=== PATIENT | female | born 2000 | race Caucasian/White ===

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

== ENCOUNTER 2020-06-24 14:17 | Emergency (ER) | payer MEDICAID ==
[~2020-06-24] VITALS: Ht 160 cm; Wt 55.0 kg
[2020-06-24] MEDS ORDERED: ONDANSETRON 4 MG/2 ML (SDV) Z0FRAN IVP STA ×2 (14:31→15:14)
[2020-06-24] MEDS ORDERED: NS IV 1000 ML 1,000 ML IV STA (14:31)
--- NOTE | 2020-06-24 14:34 | ED GI ---
General Chief Complaint: Abdominal/GI Problems Stated Complaint: VOMITING; DIARRHEA Source of Information: Patient History of Present Illness Date Seen by Provider: Jun 24, 2020 Time Seen by Provider: 14:19 Initial Comments 19-year-old female presenting with complaints of nausea vomiting and diarrhea since earlier this morning around 6 or 6:30 AM. She and her boyfriend had both eaten at [email or web address] last night and now are having GI Issues. He has abdominal cramping and she has n/v/d. She denies having any dizziness or lightheaded sensation. She has no significant abdominal cramping or pain. She denies any burning when she does urinate but states that she has not urinated much since this morning due to having multiple episodes of vomiting and watery diarrhea. She denies any fever or chills. Timing/Duration: 4-6 Hours Associated Symptoms: No Back Pain, No Chest Pain, No Diaphoresis, No Fever/Chills, No Fatigue, No Headache, No Heartburn; Nausea/Vomiting; No Rash, No Shortness of Air, No Swelling/Mass in Abdomen, No Syncope, No Weakness Allergies and Home Medications Allergies Coded Allergies: No Known Drug Allergies (Unverified , 06/24/20) Home Medications Ondansetron 4 Mg Tab.rapdis, 4 MG PO Q6H PRN for NAUSEA/VOMITING Prescribed by: BRIAN STAFFORD on 06/24/20 1536 Patient Home Medication List Home Medication List Reviewed: Yes Review of Systems Review of Systems Constitutional: No chills, No fever EENTM: No Symptoms Reported Respiratory: No Symptoms Reported Cardiovascular: No Symptoms Reported Gastrointestinal: See HPI Genitourinary: Other (Decreased urine output) Musculoskeletal: no symptoms reported Skin: no symptoms reported Psychiatric/Neurological: No Symptoms Reported Endocrine: No Symptoms Reported Past Liaryhe-Egbsfq-Gdlldp Hx Past Med/Social Hx: Reviewed Nursing Past Med/Soc Hx Past Medical History Surgeries: No Respiratory: No Cardiac: No Neurological: No Physical Exam Vital Signs Vital Signs - First Documented 06/24/20 14:26 Temp 37.0 Pulse 110 Resp 16 B/P (MAP) 122/77 (92) Pulse Ox 98 O2 Delivery Room Air Capillary Refill : Height/Weight/BMI Height: '" Weight: lbs. oz. 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 tested, alert, oriented x 3 Skin: normal color, warm/dry Images 1 - Abdomen is soft without guarding, tenderness, rebound Progress/Results/Core Measures Results/Orders Lab Results Laboratory Tests Test 06/24/20 14:26 06/24/20 14:31 Range/Units Urine Color YELLOW Urine Clarity CLEAR Urine pH 5.5 5-9 Urine Specific Renick >=1.030 1.016-1.022 Urine Protein NEGATIVE NEGATIVE Urine Glucose (UA) NEGATIVE NEGATIVE Urine Ketones 1+ H NEGATIVE Urine Nitrite NEGATIVE NEGATIVE Urine Bilirubin NEGATIVE NEGATIVE Urine Urobilinogen 0.2 < = 1.0 MG/DL Urine Leukocyte Esterase NEGATIVE NEGATIVE Urine RBC (Auto) 1+ H NEGATIVE Urine RBC 5-10 H /HPF Urine WBC 0-2 /HPF Urine Squamous Epithelial Cells 5-10 /HPF Urine Crystals NONE /LPF Urine Bacteria TRACE /HPF Urine Casts NONE /LPF Urine Mucus LARGE H /LPF Urine Culture Indicated NO White Blood Count 8.7 4.3-11.0 10^3/uL Red Blood Count 5.52 4.35-5.85 10^6/uL Hemoglobin 15.4 11.5-16.0 G/DL Hematocrit 45 35-52 % Mean Corpuscular Volume 82 80-99 FL Mean Corpuscular Hemoglobin 28 25-34 PG Mean Corpuscular Hemoglobin Concent 34 32-36 G/DL Red Cell Distribution Width 12.0 10.0-14.5 % Platelet Count 217 130-400 10^3/uL Mean Platelet Volume 10.4 7.4-10.4 FL Immature Granulocyte % (Auto) 0 % Neutrophils (%) (Auto) 81 H 42-75 % Lymphocytes (%) (Auto) 10 L 12-44 % Monocytes (%) (Auto) 9 0-12 % Eosinophils (%) (Auto) 0 0-10 % Basophils (%) (Auto) 0 0-10 % Neutrophils # (Auto) 7.1 1.8-7.8 X 10^3 Lymphocytes # (Auto) 0.8 L 1.0-4.0 X 10^3 Monocytes # (Auto) 0.8 0.0-1.0 X 10^3 Eosinophils # (Auto) 0.0 0.0-0.3 10^3/uL Basophils # (Auto) 0.0 0.0-0.1 10^3/uL Immature Granulocyte # (Auto) 0.0 0.0-0.1 10^3/uL Sodium Level 138 135-145 MMOL/L Potassium Level 3.5 L 3.6-5.0 MMOL/L Chloride Level 102 98-107 MMOL/L Carbon Dioxide Level 21 21-32 MMOL/L Anion Gap 15 H 5-14 MMOL/L Blood Urea Nitrogen 16 7-18 MG/DL Creatinine 0.80 0.60-1.30 MG/DL Estimat Glomerular Filtration Rate > 60 BUN/Creatinine Ratio 20 Glucose Level 100 70-105 MG/DL Calcium Level 9.9 8.5-10.1 MG/DL Corrected Calcium 8.5-10.1 MG/DL Total Bilirubin 0.7 0.1-1.0 MG/DL Aspartate Amino Transf (AST/SGOT) 20 5-34 U/L Alanine Aminotransferase (ALT/SGPT) 14 0-55 U/L Alkaline Phosphatase 100 40-136 U/L Total Protein 7.8 6.4-8.2 GM/DL Albumin 4.7 H 3.2-4.5 GM/DL Lipase 13 8-78 U/L Serum Test, Qualitative NEGATIVE NEGATIVE My Orders Orders - BRIAN STAFFORD MD Comprehensive Metabolic Panel (06/24/20 14:31) Lipase (06/24/20 14:31) Ua Culture If Indicated (06/24/20 14:31) Hcg,Qualitative Serum (06/24/20 14:31) Ed Iv/Invasive Line Start (06/24/20 14:31) Cbc With Automated Diff (06/24/20 14:31) Ns Iv 1000 Ml (Sodium Chloride 0.9%) (06/24/20 14:31) Ondansetron Injection (Zofran Injectio (06/24/20 14:31) Ondansetron Injection (Zofran Injectio (06/24/20 15:14) Pantoprazole Injection (Protonix Injecti (06/24/20 15:14) Vital Signs/I&O 06/24/20 14:26 Temp 37.0 Pulse 110 Resp 16 B/P (MAP) 122/77 (92) Pulse Ox 98 O2 Delivery Room Air Progress Progress Note #1: Progress Note Check basic labs and urinalysis. Give IV fluids for hydration and a dose of Zofran to help with nausea. Differential diagnosis would include food poisoning, gastroenteritis, colitis, diverticulitis, appendicitis, cholecystitis, UTI Progress Note #2: Time: 15:08 Progress Note CBC and chemistry are stable without acute significant abnormality. Her fluids have infused and she feels a little bit better. She was able to provide a urine sample. Will try repeating the nausea medicine and see if she can tolerate oral intake. Progress Note #3: Time: 15:28 Progress Note Updated pt that labs and UA look stable other than concentrated urine to go with dehydration from n/v/d. Will try po intake and see if she tolerates that after the repeat Zofran and Protonix. If she does ok will discharge on Zofran and see how she does at home Progress Note #4: Time: 15:48 Progress Note Tolerating oral intake so discharge on Zofran ODT and liquid diet. Counseled on follow up and return precautions Departure Impression Primary Impression: Nausea vomiting and diarrhea Additional Impression: Dehydration Disposition: 01 HOME, SELF-CARE Condition: Stable Departure-Patient Inst. Decision time for Depature: 15:48 Referrals: DELMI NOVAK MD (PCP/Family) Primary Care Physician Patient Instructions: CLEAR LIQUID DIET ADULT/CHILD, Diarrhea, Adult ED, Full Liquid Diet, Nausea and Vomiting, Adult ED Add. Discharge Instructions: Try the nausea medicine to help keep your stomach settled and follow a liquid diet for 24 to 36 hours and advance as you tolerate to bland, soft food. If having worsening symptoms or still unable to tolerate anything by mouth despite medicine and you start having fever over 101 F, abdominal pain, dizziness then seek medical care for recheck All discharge instructions reviewed with patient and/or family. Voiced understanding. Scripts Ondansetron (Ondansetron Odt) 4 Mg Tab.rapdis 4 MG PO Q6H PRN for NAUSEA/VOMITING for 2 Days, #8 TAB 0 Refills Prov: BRIAN STAFFORD MD 06/24/20 BRIAN STAFFORD MD Jun 24, 2020 14:34
[2020-06-24 14:40] LABS: HEMATOCRIT 45 % (35-52); HEMOGLOBIN 15.4 G/DL (11.5-16.0); LYMPHOCYTES % (AUTO) 10 % (12-44); MEAN CORPUSCULAR HEMOGLOBIN 28 PG (25-34); MEAN CORPUSCULAR HGB CONC 34 G/DL (32-36); MEAN CORPUSCULAR VOLUME 82 FL (80-99); MEAN PLATELET VOLUME 10.4 FL (7.4-10.4); MONOCYTES % (AUTO) 9 % (0-12); NEUTROPHILS % (AUTO) 81 % (42-75); PLATELET COUNT 217 10^3/uL (130-400); WHITE BLOOD COUNT 8.7 10^3/uL (4.3-11.0)
[2020-06-24 14:41] LABS: BASOPHILS % (AUTO) 0 % (0-10); EOSINOPHILS % (AUTO) 0 % (0-10); LYMPHOCYTES # (AUTO) 0.8 X 10^3 (1.0-4.0); MONOCYTES # (AUTO) 0.8 X 10^3 (0.0-1.0); NEUTROPHILS # (AUTO) 7.1 X 10^3 (1.8-7.8)
[2020-06-24 14:59] LABS: POTASSIUM 3.5 MMOL/L (3.6-5.0); SODIUM 138 MMOL/L (135-145)
[2020-06-24 15:00] LABS: ALANINE AMINOTRANSFERASE 14 U/L (0-55); ALBUMIN 4.7 GM/DL (3.2-4.5); ALKALINE PHOSPHATASE 100 U/L (40-136); BILIRUBIN,TOTAL 0.7 MG/DL (0.1-1.0); BUN/CREATININE RATIO 20; CALCIUM 9.9 MG/DL (8.5-10.1); CARBON DIOXIDE 21 MMOL/L (21-32); CHLORIDE 102 MMOL/L (98-107); GFR ESTIMATED > 60; GLUCOSE 100 MG/DL (70-105); LIPASE 13 U/L (8-78); TOTAL PROTEIN 7.8 GM/DL (6.4-8.2)
[2020-06-24] MEDS ORDERED: PANTOPRAZOLE 40 MG (PROTONIX) VIAL IV STA (15:14)
[2020-06-24 15:17] LABS: BILIRUBIN,URINE NEGATIVE (NEGATIVE); CLARITY,URINE CLEAR; COLOR,URINE YELLOW; GLUCOSE, URINE (UA) NEGATIVE (NEGATIVE); KETONES,URINE 1+ (NEGATIVE); LEUKOCYTE ESTERASE ,URINE NEGATIVE (NEGATIVE); NITRITE,URINE NEGATIVE (NEGATIVE); PH,URINE 5.5 (5-9); PROTEIN,URINE NEGATIVE (NEGATIVE)
[2020-06-24 15:18] LABS: BACTERIA,URINE TRACE /HPF; WBC,URINE 0-2 /HPF
[2020-06-24] MEDS ORDERED: ONDA4TAB11 PO (15:36)
[2020-06-24 15:50] VITALS: BP 122/60
== END 2020-06-24 15:52 | disposition home or self-care (01) ==
LOC: EDUNIT# 14:17 → ER FS 14:19
DX: R11.2 Nausea with vomiting, unspecified (principal); R19.7 Diarrhea, unspecified; E86.0 Dehydration
CPT/HCPCS: 36415; 80053; 81000; 83690; 84703; 85025

== ENCOUNTER 2020-09-07 21:28 | Emergency (ER) | payer MEDICAID ==
[~2020-09-07] VITALS: Ht 162.5 cm; Wt 55.8 kg
[~2020-09-07 21:28] MED LIST: ONDA4TAB11 PO
[2020-09-07] MEDS ORDERED: NAPR-1071 PO (22:09)
--- NOTE | 2020-09-07 22:09 | ED Back Pain ---
General Chief Complaint: Back Problems Stated Complaint: LOWER BACK PAIN Nursing Triage Note: Pt awake, alert, oriented, ambulated from waiting room to ED room 4 without difficulty. Pt reports lower back pain over the past three days. Denies any recent injury. Denies previous injury. No numbness or tingling to BLE, no loss of balance, no loss of bowel or bladder control, no fever. Pt reports taking ibuprofen et another pain pill in a white bottle at home, but it isn't helping. States that the pain is bad enough to wake her from sleep. Airway intact, respirations even et unlabored, skin warm, dry, appropriate for ethnicity. No sx of acute distress. History of Present Illness Date Seen by Provider: Sep 07, 2020 Time Seen by Provider: 21:50 Initial Comments 89-year-old female presents with right lower back pain along the hip line. She reports is been going on for 3 to 4 days. She denies any injury. She denies any previous injury or increase in activity. She denies any urinary symptoms or flank pain. Pain gets worse with any type of movement. She denies numbness tingling or any bowel or bladder issues. She denies any fever cough nausea vomiting diarrhea. She reports she is tried some ibuprofen and Tylenol at home with minimal relief. Allergies and Home Medications Allergies Coded Allergies: No Known Drug Allergies (Unverified , 06/24/20) Home Medications Naproxen 500 Mg Tablet, 500 MG PO BID Prescribed by: STAR KIM on 09/07/20 2209 Ondansetron 4 Mg Tab.rapdis, 4 MG PO Q6H PRN for NAUSEA/VOMITING Prescribed by: BRIAN STAFFORD on 06/24/20 1536 Patient Home Medication List Home Medication List Reviewed: Yes Review of Systems Constitutional: no symptoms reported EENTM: no symptoms reported Respiratory: no symptoms reported Cardiovascular: no symptoms reported Gastrointestinal: no symptoms reported Musculoskeletal: see HPI, back pain Skin: no symptoms reported Psychiatric/Neurological: No Symptoms Reported Past Hzecqct-Cyfrxw-Vebadl Hx Patient Social History Tobacco Use?: No Smoking Status: Never a Smoker Use of E-Cig and/or Vaping dev: No Substance use?: No Alcohol Use?: No Pt feels they are or have been: No Immunizations Up To Date Influenza Vaccine Up-to-Date: No; Not Current Seasonal Allergies Seasonal Allergies: No Past Medical History Surgeries: No Respiratory: No Cardiac: No Neurological: No Genitourinary: No Gastrointestinal: No Musculoskeletal: No Endocrine: No HEENT: No Cancer: No Psychosocial: No Integumentary: No Blood Disorders: No Physical Exam Vital Signs Vital Signs - First Documented 09/07/20 21:40 Temp 37.3 Pulse 123 Resp 18 B/P (MAP) 109/76 (87) Pulse Ox 99 O2 Delivery Room Air Capillary Refill : Less Than 3 Seconds Height, Weight, BMI Height: '" Weight: lbs. oz. 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 Norm as Tested Skin: Normal Color, Warm/Dry Progress/Results/Core Measures Results/Orders My Orders Orders - JORGE LUIS KIMR Clark DO Urine Bedside (09/07/20 22:06) Ketorolac Injection (Toradol Injection) (09/07/20 22:10) Norflex 60 Mg Im (09/07/20 22:10) Vital Signs/I&O 09/07/20 21:40 Temp 37.3 Pulse 123 Resp 18 B/P (MAP) 109/76 (87) Pulse Ox 99 O2 Delivery Room Air Blood Pressure Mean: 87 Departure Impression Primary Impression: Back strain Qualified Codes: S39.012A - Strain of muscle, fascia and tendon of lower back, initial encounter Disposition: HOME, SELF-CARE Condition: Stable Departure-Patient Inst. Referrals: DELMI NOVAK MD (PCP/Family) Primary Care Physician Add. Discharge Instructions: 4% topical lidocaine with menthol to affected area as directed on package All discharge instructions reviewed with patient and/or family. Voiced understanding. Scripts Naproxen (Naprosyn) 500 Mg Tablet 500 MG PO BID, #30 TAB 0 Refills Prov: JORGE LUIS KIMR Clark DO 09/07/20 MONI KIMVOR L DO Sep 07, 2020 22:09
[2020-09-07] MEDS ORDERED: ORPHENADRINE 60 MG/2 ML (NORFLEX) AMP (ED ONLY) IM STA (22:10)
[2020-09-07] MEDS ORDERED: KETOROLAC 30 MG/ML VIAL IM STA (22:10)
[2020-09-07 22:40] VITALS: BP 102/68
== END 2020-09-07 22:45 | disposition home or self-care (01) ==
LOC: EDUNIT# 21:28 → ER FS 21:31
DX: S39.012A Strain of muscle, fascia and tendon of lower back, initial encounter (principal); X58.XXXA Exposure to other specified factors, initial encounter
CPT/HCPCS: 84703; 99284

== ENCOUNTER 2020-12-01 02:05 | Emergency (ER) | payer MEDICAID ==
[~2020-12-01] VITALS: Ht 160 cm; Wt 53.3 kg
[~2020-12-01 02:05] MED LIST changes: +NAPR-1071 PO
[2020-12-01] MEDS ORDERED: ONDANSETRON 4 MG (ZOFRAN) ORAL DISSOLVE TAB PO STA (02:22)
--- NOTE | 2020-12-01 02:28 | ED GI ---
General Chief Complaint: Abdominal/GI Problems Stated Complaint: NAUSEA/VOMITING Nursing Triage Note: Pt awake, alert, oriented. Ambulated from waiting room to ER2 without difficulty. Pt reports nausea et vomiting since 1900 last night. Pt believes she may have food poisoning, went out to eat at 1700. Pt does not know if the person that ate there with her is also sick. Denies fever. Denies sick contacts. Denies blood or coffee grounds appearance to emesis. Airway intact. Respirations even et unlabored. Skin warm, dry, appropriate for ethnicity. No sx of acute distress. Source of Information: Patient Exam Limitations: No Limitations History of Present Illness Date Seen by Provider: Dec 01, 2020 Time Seen by Provider: 14:14 Initial Comments 19-year-old female otherwise healthy with no medical issues coming in due to nausea, and nonbloody nonbilious vomiting that started around 7 PM today as well as some loose stools. She attributes this to the restaurant she ate at several hours prior to the event in which she had a cheeseburger and fried pickles. Her boyfriend also ate this, but she has not talked with him to see if he is also sick. Denies any fever, cough, abdominal pain, dysuria, vaginal discharge, body aches, or any other concerns. She is on the [place] shot for control and has not missed any doses. Allergies and Home Medications Allergies Coded Allergies: No Known Drug Allergies (Unverified , 06/24/20) Patient Home Medication List Home Medication List Reviewed: Yes Naproxen (Naprosyn) 500 Mg Tablet, 500 MG PO BID Prescribed by: STAR KIM on 09/07/202208 Ondansetron (Ondansetron Odt) 4 Mg Tab.rapdis, 4 MG PO Q6H PRN for NAUSEA/VOMITING Prescribed by: BRIAN STAFFORD on 06/24/20 1536 Ondansetron (Ondansetron Odt) 4 Mg Tab.rapdis, 4 MG PO Q6H PRN for NAUSEA/VOMITING Prescribed by: JONES VEGA on 12/01/20 0230 Review of Systems Review of Systems Constitutional: No chills, No fever, No malaise, No weakness EENTM: No Blurred Vision Respiratory: Denies Cough, Denies Shortness of Air Cardiovascular: Denies Chest Pain Gastrointestinal: Denies Abdominal Pain; Diarrhea, Nausea, Vomiting Genitourinary: Denies Frequency, Denies Flank Pain Musculoskeletal: No back pain Skin: no symptoms reported Psychiatric/Neurological: No Symptoms Reported Endocrine: No Symptoms Reported Hematologic/Lymphatic: No Symptoms Reported All Other Systems Reviewed Negative Unless Noted: Yes Past Lxpdkxn-Jkhrbg-Aykcic Hx Patient Social History Tobacco Use?: No Use of E-Cig and/or Vaping dev: No Substance use?: No Alcohol Use?: No Immunizations Up To Date First/Initial COVID19 Vaccinat: 2020, unknown month Second COVID19 Vaccination Jerod: 2020, unknown month COVID19 Vaccine Medical Donation Professional: [employer] Seasonal Allergies Seasonal Allergies: No Past Medical History Surgeries: No Respiratory: No Cardiac: No Neurological: No Genitourinary: No Gastrointestinal: No Musculoskeletal: No Endocrine: No HEENT: No Cancer: No Psychosocial: No Integumentary: No Blood Disorders: No Physical Exam Vital Signs Vital Signs - First Documented 12/01/20 02:10 Temp 36.1 Pulse 99 Resp 18 B/P (MAP) 121/79 (93) Pulse Ox 97 O2 Delivery Room Air Capillary Refill : Less Than 3 Seconds Height/Weight/BMI Height: '" Weight: lbs. oz. kg; 20.00 BMI Method: General Appearance: WD/WN, no apparent distress HEENT: PERRL/EOMI, pharynx normal Neck: non-tender, full range of motion, supple, normal inspection Respiratory: chest non-tender, lungs clear, normal breath sounds, no respiratory distress, no accessory muscle use Cardiovascular: regular rate, rhythm, no edema, no murmur Gastrointestinal: normal bowel sounds, non tender, soft; No distended, No guar ding, No rebound Extremities: normal range of motion, non-tender, normal inspection, no pedal edema, no calf tenderness, normal capillary refill Back: normal inspection, no CVA tenderness, no vertebral tenderness Neurologic/Psychiatric: no motor/sensory deficits, alert, normal mood/affect Skin: normal color, warm/dry Lymphatic: no adenopathy Progress/Results/Core Measures Results/Orders My Orders Orders - JONES VEGA MD Ondansetron Oral Dissolve Tab (Zofran (12/01/20 02:22) Vital Signs/I&O 12/01/20 02:10 Temp 36.1 Pulse 99 Resp 18 B/P (MAP) 121/79 (93) Pulse Ox 97 O2 Delivery Room Air Blood Pressure Mean: 93 Progress Progress Note : Progress Note Well-appearing 19-year-old female with above history coming in due to several hours of nausea and nonbloody nonbilious vomiting. ABCs were intact and vitals were stable on presentation. Physical exam reassuring, specifically a soft and nontender abdomen. She is not tachycardic, and appears well-hydrated on exam. This is potentially viral versus foodborne related. Given her reassuring abdominal exam and no pain anywhere I have a low suspicion for anything more insidious. No infectious symptoms that would point to anything such as a bladder or kidney infection. I believe she is stable for discharge with outpatient follow-up and she can push oral fluids. She was sent home with strict return precautions. Departure Impression Primary Impression: Nausea and vomiting Qualified Codes: R11.2 - Nausea with vomiting, unspecified Disposition: HOME, SELF-CARE Condition: Stable Departure-Patient Inst. Decision time for Depature: 02:28 Referrals: DELMI NOVAK MD (PCP/Family) Primary Care Physician Patient Instructions: Food Poisoning (DC) Add. Discharge Instructions: It is possible you ate something bad that is causing you to vomit. Take Zofran as needed for the nausea. Continue to sip fluids all day tomorrow. You can us administrative law judge how well hydrated you are by if you are still urinating. Typically this lasts 24 to 48 hours if it is food related. If you begin having fever, cough, chills, body aches, or any other concerns like that, then you may need to be Covid tested. If you are done vomiting by tomorrow, it is okay for you to go to school or work on Wednesday. All discharge instructions reviewed with patient and/or family. Voiced understanding. Scripts Ondansetron (Ondansetron Odt) 4 Mg Tab.rapdis 4 MG PO Q6H PRN for NAUSEA/VOMITING for 5 Days, #20 TAB 0 Refills Prov: JONES VEGA MD 12/01/20 JONES VEGA MD Dec 01, 2020 02:28
[2020-12-01] MEDS ORDERED: ONDA4TAB11 PO (02:30)
[2020-12-01 02:35] VITALS: BP 121/79
== END 2020-12-01 02:35 | disposition home or self-care (01) ==
LOC: EDUNIT# 02:05 → ER FS 02:07
DX: R11.2 Nausea with vomiting, unspecified (principal)
CPT/HCPCS: 99283

== ENCOUNTER 2021-10-20 20:58 | Emergency (ER) | payer MEDICAID ==
[~2021-10-20] VITALS: Ht 160 cm; Wt 58.4 kg
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
[2021-10-20] MEDS ORDERED: PROC-1 PO (21:23)
[2021-10-20] MEDS ORDERED: ONDA4TAB11 PO (21:23)
[2021-10-20] MEDS ORDERED: KETOROLAC 30 MG/ML VIAL IM ONE (21:30)
[2021-10-20] MEDS ORDERED: PROCHLORPERAZINE 10 MG/2ML INJ (COMPAZINE) IM ONE (21:30)
[2021-10-20] MEDS ORDERED: diphenhydrAMINE 50 MG/ML INJ (BENADRYL) IM ONE (21:30)
[2021-10-20 21:36] VITALS: BP 136/84
== END 2021-10-20 21:36 | disposition home or self-care (01) ==
LOC: EDUNIT# 20:58 → ER FS 21:00
DX: S06.0X0A Concussion without loss of consciousness, initial encounter (principal); W19.XXXA Unspecified fall, initial encounter; W22.8XXA Striking against or struck by other objects, initial encounter; Y92.828 Other wilderness area as the place of occurrence of the external cause
CPT/HCPCS: 99284

== ENCOUNTER 2022-01-31 21:02 | Emergency (ER) | payer MEDICAID ==
[~2022-01-31] VITALS: Ht 160 cm; Wt 58.2 kg
[~2022-01-31 21:02] MED LIST changes: +PROC-1 PO
[2022-01-31] MEDS ORDERED: NS IV 1000 ML 1,000 ML IV SCH (21:45)
[2022-01-31] MEDS ORDERED: KETOROLAC 15 MG/ML VIAL IVP ONE (21:45)
--- NOTE | 2022-01-31 22:06 | ED General ---
General Chief Complaint: Cough/Cold/Flu Symptoms Stated Complaint: INFLUENZA A + & STEP + 12/3 - BACK PAIN Nursing Triage Note: PT STATES SHE TESTED POSITIVE FOR FLU A THIS AM AT [facility], WAS NEGATIVE FOR COVID, NOW HAS BACK PAIN/ACHE. HAS BEEN TAKING TYLENOL AND IBUPROFEN FOR FEVER AT HOME. IS ALSO UNABLE TO KEEP ANYTHING DOWN. Source of Information: Patient Exam Limitations: No Limitations (ROBERTH JACK APRN) History of Present Illness Date Seen by Provider: Jan 31, 2022 Time Seen by Provider: 21:15 Initial Comments Patient is a previously healthy 21-year-old female who presents to the emergency department with back pain began earlier today. Patient was seen at a walk-in clinic where she tested positive for influenza A. She was negative for COVID. She states she has been taking Tylenol and ibuprofen for her fever at home. She states she has also had a mild cough and nasal congestion. Denies any urinary symptoms. (ROBERTH JACK APRN) Allergies and Home Medications Allergies Coded Allergies: No Known Drug Allergies (Unverified , 06/24/20) Patient Home Medication List Home Medication List Reviewed: Yes (ROBERTH JACK APRN) Naproxen (Naprosyn) 500 Mg Tablet, 500 MG PO BID Prescribed by: STAR KIM on 09/07/202208 Ondansetron (Ondansetron Odt) 4 Mg Tab.rapdis, 4 MG PO Q6H PRN for NAUSEA/VOMITING Prescribed by: BRIAN STAFFORD on 06/24/20 1536 Ondansetron (Ondansetron Odt) 4 Mg Tab.rapdis, 4 MG PO Q6H PRN for NAUSEA/VOMITING Prescribed by: OJNES VEGA on 12/01/20 0230 Ondansetron (Ondansetron Odt) 4 Mg Tab.rapdis, 4 MG PO Q6H PRN for NAUSEA/VOMITING-1ST LINE Prescribed by: JONES VEGA on 10/20/212122 Prochlorperazine Maleate (Compazine) 10 Mg Tablet, 10 MG PO Q8H PRN for NAUSEA/VOMITING-2ND LINE Prescribed by: JONES VEGA on 10/20/212122 Review of Systems Review of Systems Constitutional: see HPI, fever, malaise EENTM: no symptoms reported Respiratory: no symptoms reported Cardiovascular: no symptoms reported Gastrointestinal: no symptoms reported Genitourinary: no symptoms reported Musculoskeletal: see HPI, back pain Skin: no symptoms reported Psychiatric/Neurological: No Symptoms Reported Hematologic/Lymphatic: No Symptoms Reported Immunological/Allergic: no symptoms reported (ROBERTH JACK APRN) Past Iwectzv-Jlsdvo-Qxuuyu Hx Patient Social History Tobacco Use?: No Substance use?: No Alcohol Use?: No (ROBERTH JACK APRN) Immunizations Up To Date Influenza Vaccine Up-to-Date: No; Not Current First/Initial COVID19 Vaccinat: Pfizer Second COVID19 Vaccination Jerod: Kannact Third COVID19 Vaccination Date: Kannact (ROBERTH JACK APRN) Seasonal Allergies Seasonal Allergies: No (ROBERTH JACK APRN) Past Medical History Surgeries: No Respiratory: No Cardiac: No Neurological: No Genitourinary: No Gastrointestinal: No Musculoskeletal: No Endocrine: No HEENT: No Cancer: No Psychosocial: No Integumentary: No Blood Disorders: No (ROBERTH JACK APRN) Physical Exam Vital Signs Vital Signs - First Documented 01/31/22 21:11 Temp 36.9 Pulse 98 Resp 16 B/P (MAP) 99/66 (77) Pulse Ox 97 (LETA PALMER MD) Vital Signs Capillary Refill : (ROBERTH JACK APRN) Height, Weight, BMI Height: '" Weight: lbs. oz. kg; 22.00 BMI Method: General Appearance: No Apparent Distress, WD/WN HEENT: PERRL/EOMI, TMs Normal, Normal ENT Inspection, Pharynx Normal Neck: Non Tender, Supple Respiratory: Chest Non Tender, Lungs Clear, Normal Breath Sounds, No Accessory Muscle Use, No Respiratory Distress Cardiovascular: Regular Rate, Rhythm Gastrointestinal: Non Tender, Soft Neurologic/Psychiatric: Alert, Oriented x3, No Motor/Sensory Deficits, Normal Mood/Affect Skin: Normal Color, Warm/Dry (ROBERTH JACK APRN) Progress/Results/Core Measures Suspected Sepsis SIRS Temperature: Pulse: 98 Respiratory Rate: 16 Blood Pressure 99 /66 Mean: 77 (ROBERTH JACK APRN) Results/Orders Vital Signs/I&O 01/31/22 01/31/22 21:11 22:19 Temp 36.9 Pulse 98 Resp 16 B/P (MAP) 99/66 (77) 98/63 Pulse Ox 97 (LETA PALMER MD) Vital Signs/I&O Capillary Refill : (ROBERTH JACK APRN) Blood Pressure Mean: 77 Progress Note : Progress Note Patient is nontoxic and well-hydrated on exam. No adventitious lung sounds work his work of breathing noted. Patient is having myalgias as expected with influenza. Her vital signs are reassuring. There is no indication for any diagnostic testing at this time as the etiology of her symptoms has already been established. Patient was given a liter of normal saline as well as a dose of ketorolac. She will be discharged home with recommendations for supportive care and close follow-up with PCP. Return precautions for urgent symptomology discussed. Patient verbalized understanding. (ROBERTH JACK APRN) Departure Impression Primary Impression: Influenza Disposition: 01 HOME, SELF-CARE Condition: Stable Departure-Patient Inst. Decision time for Depature: 22:00 (ROBERTH JACK APRN) Referrals: NO,LOCAL PHYSICIAN (PCP) Primary Care Physician LEE CHAMBERS APRN (Family) Primary Care Physician Patient Instructions: Flu, Adult (DC) ATTENDING PHYSICIAN NOTE: I was physically present as attending physician in the emergency department during the care of this patient, but I was not directly involved in the decision making or delivery of care for this patient. (LETA PALMER MD) ROBERTH JACK APRN Jan 31, 2022 22:05 LETA PALMER MD Feb 02, 2022 05:38
[2022-01-31 22:19] VITALS: BP 98/63
== END 2022-01-31 22:19 | disposition home or self-care (01) ==
LOC: EDUNIT# 21:02 → ER 21:03
DX: J10.1 Influenza due to other identified influenza virus with other respiratory manifestations (principal)
CPT/HCPCS: 99281

== ENCOUNTER 2022-05-02 18:28 | Emergency (ER) | payer MEDICAID ==
[~2022-05-02] VITALS: Ht 162.6 cm; Wt 52.6 kg
[2022-05-02] MEDS ORDERED: NS IV 1000 ML 1,000 ML IV STA (18:58)
--- NOTE | 2022-05-02 19:09 | ED General ---
General Chief Complaint: General Problems/Pain Stated Complaint: NUMBNESS, LOW BP, WEAKNESS,DIZZY Source of Information: Patient Exam Limitations: No Limitations (JONES GHOSH) History of Present Illness Date Seen by Provider: May 02, 2022 Time Seen by Provider: 19:04 Initial Comments Patient is a 21-year-old female with a history anxiety and depression who presents ED for multiple complaints. She has a history of seizures as a kid. She was on medications prior but they took her off. She states over the past 2 weeks she has been having numbness and tingling in her hands and feet. This is been intermittent but worse today. She woke up today feeling dizzy, lightheaded with worsening hand numbness and tingling her hands and feet. She states she has been having episodes where she has difficulty speaking. She went to her therapist for her anxiety yesterday and they noted her blood pressure being low and was recommended come to ED for further evaluation. She is currently on trazodone for sleep, zoloft. Patient denies any urinary symptoms. She is concerned for she may be anemic. Denies any drug use or alcohol use. Denies of any known cardiac history. No recent travels or surgeries. Denies fever, neck pain, visual changes. Associate headache today (JONES GHOSH) Allergies and Home Medications Allergies Coded Allergies: No Known Drug Allergies (Unverified , 06/24/20) Patient Home Medication List Home Medication List Reviewed: Yes (JONES GHOSH) Cephalexin (Cephalexin) 500 Mg Tablet, 500 MG PO BID Prescribed by: ELIZABETH GREER on 05/02/222019 Naproxen (Naprosyn) 500 Mg Tablet, 500 MG PO BID Prescribed by: STAR KIM on 09/07/202208 Ondansetron (Ondansetron Odt) 4 Mg Tab.rapdis, 4 MG PO Q6H PRN for NAUSEA/VOMITING Prescribed by: BRIAN STAFFORD on 06/24/20 1536 Ondansetron (Ondansetron Odt) 4 Mg Tab.rapdis, 4 MG PO Q6H PRN for NAUSEA/VOMITING Prescribed by: JONES VEGA on 12/01/20 0230 Ondansetron (Ondansetron Odt) 4 Mg Tab.rapdis, 4 MG PO Q6H PRN for NAUSEA/VOMITING-1ST LINE Prescribed by: JONES EVGA on 10/20/212122 Prochlorperazine Maleate (Compazine) 10 Mg Tablet, 10 MG PO Q8H PRN for NAUSEA/VOMITING-2ND LINE Prescribed by: JONES VEGA on 10/20/212122 Review of Systems Review of Systems Constitutional: No chills, No diaphoresis, No malaise, No weakness EENTM: No hearing loss, No ear pain, No blurred vision Respiratory: No cough, No dyspnea on exertion, No short of breath, No wheezing Cardiovascular: No chest pain Gastrointestinal: No abdominal pain, No diarrhea, No nausea, No vomiting Genitourinary: No decreased output, No discharge Musculoskeletal: No back pain, No joint pain Psychiatric/Neurological: Anxiety, Depressed, Headache, Numbness, Paresthesia Hematologic/Lymphatic: Denies Anemia Immunological/Allergic: denies food allergy (JONES GHOSH) All Other Systems Reviewed Negative Unless Noted: Yes (JONES GHOSH) Past Cewfzhk-Eicxcc-Qzrvzk Hx Patient Social History Tobacco Use?: No Use of E-Cig and/or Vaping dev: No Substance use?: No Alcohol Use?: No Pt feels they are or have been: No (JONES GHOSH) Immunizations Up To Date Influenza Vaccine Up-to-Date: Yes; Up-to-Date First/Initial COVID19 Vaccinat: Pfizer Second COVID19 Vaccination Jerod: Pfizer Third COVID19 Vaccination Date: [facility] (JONES GHOSH) Seasonal Allergies Seasonal Allergies: No (JONES GHOSH) Past Medical History Surgery/Hospitalization HX: ANXIETY Surgeries: No Respiratory: No Cardiac: No Neurological: No Genitourinary: No Gastrointestinal: No Musculoskeletal: No Endocrine: No HEENT: No Cancer: No Psychosocial: No Integumentary: No Blood Disorders: No (JONES GHOSH) Physical Exam Vital Signs Vital Signs - First Documented 05/02/22 18:40 Temp 36.3 Pulse 74 Resp 16 B/P (MAP) 116/95 (102) Pulse Ox 98 O2 Delivery Room Air (CATALINA,TRE K DO) Vital Signs Capillary Refill : (JONES GHOSH) Height, Weight, BMI Height: '" Weight: lbs. oz. kg; 22.00 BMI Method: General Appearance: No Apparent Distress, WD/WN Eyes: Bilateral Eye Normal Inspection, Bilateral Eye PERRL, Bilateral Eye EOMI HEENT: PERRL/EOMI, TMs Normal, Normal ENT Inspection, Pharynx Normal Neck: Full Range of Motion, Normal Inspection, Supple Respiratory: Chest Non Tender, Lungs Clear, Normal Breath Sounds, No Accessory Muscle Use Cardiovascular: Regular Rate, Rhythm, No Edema, No Gallop, No JVD, No Murmur Gastrointestinal: Normal Bowel Sounds, No Organomegaly, No Pulsatile Mass Extremity: Normal Capillary Refill, Normal Inspection, Normal Range of Motion, Non Tender Neurologic/Psychiatric: Alert, Oriented x3, No Motor/Sensory Deficits, Normal Mood/Affect Skin: Normal Color, Warm/Dry (JONES GHOSH) Progress/Results/Core Measures Suspected Sepsis SIRS Temperature: Pulse: Respiratory Rate: Laboratory Tests 05/02/22 19:24: White Blood Count 9.7 Blood Pressure / Mean: Laboratory Tests 05/02/22 19:24: Creatinine 0.87, Platelet Count 268, Total Bilirubin 0.8 (JONES GHOSH) Results/Orders Lab Results Laboratory Tests Test 05/02/22 19:24 05/02/22 19:34 Range/Units White Blood Count 9.7 4.3-11.0 10^3/uL Red Blood Count 5.47 H 3.80-5.11 10^6/uL Hemoglobin 15.0 11.5-16.0 g/dL Hematocrit 44 35-52 % Mean Corpuscular Volume 80 80-99 fL Mean Corpuscular Hemoglobin 27 25-34 pg Mean Corpuscular Hemoglobin Concent 34 32-36 g/dL Red Cell Distribution Width 13.0 10.0-14.5 % Platelet Count 268 130-400 10^3/uL Mean Platelet Volume 10.5 9.0-12.2 fL Immature Granulocyte % (Auto) 0 % Neutrophils (%) (Auto) 76 H 42-75 % Lymphocytes (%) (Auto) 17 12-44 % Monocytes (%) (Auto) 6 0-12 % Eosinophils (%) (Auto) 0 0-10 % Basophils (%) (Auto) 0 0-10 % Neutrophils # (Auto) 7.3 1.8-7.8 10^3/uL Lymphocytes # (Auto) 1.7 1.0-4.0 10^3/uL Monocytes # (Auto) 0.6 0.0-1.0 10^3/uL Eosinophils # (Auto) 0.0 0.0-0.3 10^3/uL Basophils # (Auto) 0.0 0.0-0.1 10^3/uL Immature Granulocyte # (Auto) 0.0 0.0-0.1 10^3/uL Erythrocyte Sedimentation Rate 4 0-20 MM/HR Sodium Level 138 135-145 MMOL/L Potassium Level 3.1 L 3.6-5.0 MMOL/L Chloride Level 104 98-107 MMOL/L Carbon Dioxide Level 23 21-32 MMOL/L Anion Gap 11 5-14 MMOL/L Blood Urea Nitrogen 17 7-18 MG/DL Creatinine 0.87 0.60-1.30 MG/DL Estimat Glomerular Filtration Rate 97 BUN/Creatinine Ratio 20 Glucose Level 121 H 70-105 MG/DL Calcium Level 10.5 H 8.5-10.1 MG/DL Corrected Calcium 10.2 H 8.5-10.1 MG/DL Magnesium Level 2.2 1.6-2.4 MG/DL Total Bilirubin 0.8 0.1-1.0 MG/DL Aspartate Amino Transf (AST/SGOT) 17 5-34 U/L Alanine Aminotransferase (ALT/SGPT) 15 0-55 U/L Alkaline Phosphatase 73 40-136 U/L C-Reactive Protein High Sensitivity 0.22 0.00-0.50 MG/DL Total Protein 7.9 6.4-8.2 GM/DL Albumin 4.4 3.2-4.5 GM/DL Lipase 47 8-78 U/L Thyroid Stimulating Hormone (TSH) 0.35 0.35-4.94 UIU/ML Urine Color YELLOW Urine Clarity CLEAR Urine pH 6.5 5-9 Urine Specific [place] 1.025 H 1.016-1.022 Urine Protein TRACE H NEGATIVE Urine Glucose (UA) NEGATIVE NEGATIVE Urine Ketones NEGATIVE NEGATIVE Urine Nitrite NEGATIVE NEGATIVE Urine Bilirubin 1+ H NEGATIVE Urine Urobilinogen 1.0 < = 1.0 MG/DL Urine Leukocyte Esterase 1+ H NEGATIVE Urine RBC (Auto) 3+ H NEGATIVE Urine RBC 2-5 H /HPF Urine WBC 5-10 H /HPF Urine Squamous Epithelial Cells 10-25 H /HPF Urine Crystals PRESENT H /LPF Urine Amorphous Sediment FEW VIJAY URATES H /LPF Urine Bacteria MODERATE H /HPF Urine Casts NONE /LPF Urine Mucus LARGE H /LPF Urine Culture Indicated YES Urine Test NEGATIVE NEGATIVE Urine Opiates Screen NEGATIVE NEGATIVE Urine Oxycodone Screen NEGATIVE NEGATIVE Urine Methadone Screen NEGATIVE NEGATIVE Urine Propoxyphene Screen NEGATIVE NEGATIVE Urine Barbiturates Screen NEGATIVE NEGATIVE Ur Tricyclic Antidepressants Screen NEGATIVE NEGATIVE Urine Phencyclidine Screen NEGATIVE NEGATIVE Urine Amphetamines Screen NEGATIVE NEGATIVE Urine Methamphetamines Screen NEGATIVE NEGATIVE Urine Benzodiazepines Screen POSITIVE H NEGATIVE Urine Cocaine Screen NEGATIVE NEGATIVE Urine Cannabinoids Screen POSITIVE H NEGATIVE (TRE ARNOLD DO) Medications Given in ED Current Medications Medications Dose Ordered Sig/Jaqui Route Start Time Stop Time Status Last Admin Dose Admin Potassium Chloride 20 meq ONCE ONCE PO 05/02/22 20:15 05/02/22 20:16 DC 05/02/22 20:24 20 MEQ (TRE ARNOLD DO) Vital Signs/I&O 05/02/22 05/02/22 18:40 20:27 Temp 36.3 Pulse 74 83 Resp 16 16 B/P (MAP) 116/95 (102) 111/77 Pulse Ox 98 98 O2 Delivery Room Air Room Air (TRE ARNOLD DO) Vital Signs/I&O Capillary Refill : (JONES GHOSH) Departure Communication (PCP) reviewed old ER visits, H&P's, lab testing and imaging. No previous visits for seizures. Not currently on medication at this time. 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 Not shown evidence of seizure-like activity.. She reports numbness and tingling to her hands and feet. Appears to be more polyneuropathy of unknown origin. Equal pulses throughout. No skin color changes. No known cardiac history. No history of autoimmune diseases. No evidence of rash. Denies chest pain or shortness of breath. No recent URI. CBC, CMP, magnesium, and inflammatory markers ESR, CRP and TSH was ordered. Normal white blood count. She is not anemic. Chemistry was otherwise unremarkable besides a potassium of 3.1. Patient Was given 20 ml equivalent of oral potassium. Normal magnesium. Normal inflammatory markers. Patient Was given a liter of fluid secondary to the weakness and dizziness. She is not severely hypotensive. Blood pressure 116/95. She is otherwise healthy. Celina carter is small and healthy. Patient neuro exam unremarkable. Urinalysis was concerning for urinary tract infection. Negative for . Patient was given a dose of Keflex here in the ED. Drug screen positive for benzos and cannabinoid. Patient states her symptoms are feeling better after the fluid. She does report some numbness and tingling. Recommend outpatient follow-up with her primary care physician for further evaluation of the numbness and tingling. No evidence of diabetes. She is negative for . No evidence suggesting pinched nerve or known autoimmune diseases. No recent upper respiratory infection. No medications suggesting etiology. Denies being bit by a tick. No history of kidney failure. No known genetic disorders that may potentially be related. No evidence suggesting tumor. Normal thyroid. Unclear etiology of her numbness and tingling. Patient was not orthostatic hypotensive. No neurological red flag findings warrants emergent CT scan of the head at this time. She appears well and nontoxic. She is afebrile and not tachycardic. Further evaluation is needed by pcp. (JONES GHOSH) Impression Primary Impression: UTI (urinary tract infection) Additional Impression: Numbness and tingling Disposition: 01 HOME, SELF-CARE Condition: Stable Departure-Patient Inst. Decision time for Depature: 20:19 (JONES GHOSH) Referrals: LEE CHAMBERS APRN (PCP) Primary Care Physician Patient Instructions: Urinary Tract Infection, Adult ED Scripts Cephalexin (Cephalexin) 500 Mg Tablet 500 MG PO BID for 7 Days, #14 TAB Prov: JONES GHOSH 05/02/22 ATTENDING PHYSICIAN NOTE: I WAS PHYSICALLY PRESENT ER PHYSICIAN, BUT I WAS NOT INVOLVED IN ANY DECISION MAKING OR ANY CARE OF THIS PATIENT AND I AM NOT COLLABORATING PHYSICIAN. (TRE ARNOLD DO) JONES GHOSH May 02, 2022 19:08 TRE ARNOLD DO May 03, 2022 04:11
[2022-05-02 19:32] LABS: BASOPHILS % (AUTO) 0 % (0-10); EOSINOPHILS % (AUTO) 0 % (0-10); HEMATOCRIT 44 % (35-52); LYMPHOCYTES # (AUTO) 1.7 10^3/uL (1.0-4.0); LYMPHOCYTES % (AUTO) 17 % (12-44); MEAN CORPUSCULAR HEMOGLOBIN 27 pg (25-34); MEAN CORPUSCULAR HGB CONC 34 g/dL (32-36); MEAN CORPUSCULAR VOLUME 80 fL (80-99); MEAN PLATELET VOLUME 10.5 fL (9.0-12.2); MONOCYTES # (AUTO) 0.6 10^3/uL (0.0-1.0); MONOCYTES % (AUTO) 6 % (0-12); NEUTROPHILS # (AUTO) 7.3 10^3/uL (1.8-7.8); NEUTROPHILS % (AUTO) 76 % (42-75); PLATELET COUNT 268 10^3/uL (130-400); WHITE BLOOD COUNT 9.7 10^3/uL (4.3-11.0)
[2022-05-02 19:43] LABS: CLARITY,URINE CLEAR; COLOR,URINE YELLOW; GLUCOSE, URINE (UA) NEGATIVE (NEGATIVE); KETONES,URINE NEGATIVE (NEGATIVE); LEUKOCYTE ESTERASE ,URINE 1+ (NEGATIVE); NITRITE,URINE NEGATIVE (NEGATIVE); PH,URINE 6.5 (5-9); PROTEIN,URINE TRACE (NEGATIVE)
[2022-05-02 19:57] LABS: AMPHETAMINE SCREEN, URINE NEGATIVE (NEGATIVE); BARBITURATE SCREEN URINE NEGATIVE (NEGATIVE); BENZODIAZEPINES SCREEN URINE POSITIVE (NEGATIVE); CANNABINOID SCREEN, URINE POSITIVE (NEGATIVE); COCAINE SCREEN URINE NEGATIVE (NEGATIVE); METHADONE STAT NEGATIVE (NEGATIVE); OPIATE SCREEN URINE NEGATIVE (NEGATIVE); OXYCODONE STAT NEGATIVE (NEGATIVE); PROPOXYPHENE STAT NEGATIVE (NEGATIVE); TRICYCLIC ANTIDEPRESSANTS SCRE NEGATIVE (NEGATIVE)
[2022-05-02 19:58] LABS: ALBUMIN 4.4 GM/DL (3.2-4.5); BILIRUBIN,TOTAL 0.8 MG/DL (0.1-1.0); CALCIUM 10.5 MG/DL (8.5-10.1); CREATININE SERUM 0.87 MG/DL (0.60-1.30); MAGNESIUM 2.2 MG/DL (1.6-2.4); POTASSIUM 3.1 MMOL/L (3.6-5.0); TOTAL PROTEIN 7.9 GM/DL (6.4-8.2)
[2022-05-02 20:05] LABS: BILIRUBIN,URINE 1+ (NEGATIVE)
[2022-05-02 20:08] LABS: BACTERIA,URINE MODERATE /HPF
[2022-05-02 20:09] LABS: AMORPHOUS SEDIMENT,UR FEW AMOR URATES /LPF
[2022-05-02] MEDS ORDERED: KCL 20 MEQ TAB (K-DUR) PO ONE (20:15)
[2022-05-02] MEDS ORDERED: CEPHALEXIN 250 MG (KEFLEX) CAP PO STA (20:18)
[2022-05-02] MEDS ORDERED: CEPH500T PO (20:20)
[2022-05-02 20:27] VITALS: BP 111/77
== END 2022-05-02 20:28 | disposition home or self-care (01) ==
LOC: EDUNIT# 18:28 → ER 18:29
DX: N39.0 Urinary tract infection, site not specified (principal); R20.2 Paresthesia of skin; R20.0 Anesthesia of skin; Z79.899 Other long term (current) drug therapy
CPT/HCPCS: 36415; 80053; 80306; 81000; 83690; 83735; 84443; 84703; 85025; 85652; 86141; 87088; 99283

== ENCOUNTER 2022-12-10 06:01 | Emergency (ER) | payer SELFPAY ==
[~2022-12-10] VITALS: Ht 172 cm; Wt 58.0 kg
[~2022-12-10 06:01] MED LIST changes: +CEPH500T PO
[2022-12-10 06:08] VITALS: BP 120/67
--- NOTE | 2022-12-10 06:24 | ED EENT ---
History of Present Illness General Chief Complaint: Oral/Throat Problems Stated Complaint: TOP LIP PAIN/SWELLING Nursing Triage Note: LIP SWELLING X 3 DAYS Source: patient Exam Limitations: no limitations History of Present Illness Date Seen by Provider: Dec 10, 2022 Time Seen by Provider: 06:10 Initial Comments Here with report of upper lip swelling over the last 3 days and states that it is getting worse at nighttime. She has not been able to wear her invisible line retainer due to the swelling and pain from this. Denies injury, fever or infection concerns. She has not had this before. Timing/Duration: other (3 days ago) Prearrival Treatment: no prearrival treatment Associated Symptoms: No cough, No drooling, No fever, No sore throat Allergies and Home Medications Allergies Coded Allergies: No Known Drug Allergies (Unverified , 06/24/20) Patient Home Medication List Home Medication List Reviewed: Yes Cephalexin (Cephalexin) 500 Mg Tablet, 500 MG PO BID Prescribed by: ELIZABETH GREER on 05/02/222019 Naproxen (Naprosyn) 500 Mg Tablet, 500 MG PO BID Prescribed by: STAR KIM on 09/07/202208 Ondansetron (Ondansetron Odt) 4 Mg Tab.rapdis, 4 MG PO Q6H PRN for NAUSEA/VOMITING Prescribed by: BRIAN STAFFORD on 06/24/20 153 Ondansetron (Ondansetron Odt) 4 Mg Tab.rapdis, 4 MG PO Q6H PRN for NAUSEA/VOMITING Prescribed by: JONES VEGA on 12/01/20 0230 Ondansetron (Ondansetron Odt) 4 Mg Tab.rapdis, 4 MG PO Q6H PRN for NAUSEA/VOMITING-1ST LINE Prescribed by: JONES VEGA on 10/20/212122 Prochlorperazine Maleate (Compazine) 10 Mg Tablet, 10 MG PO Q8H PRN for NAUSEA/VOMITING-2ND LINE Prescribed by: JONES VEGA on 10/20/212122 Review of Systems Review of Systems Constitutional: see HPI; No chills, No fever Ears: No Symptoms Reported Nose: no symptoms reported Mouth: see HPI, swelling; denies previous injury Throat: denies pain, denies swelling Respiratory: no symptoms reported Cardiovascular: no symptoms reported Skin: no symptoms reported Past Evfyqqk-Yanotn-Sawrzv Hx Patient Social History Tobacco Use?: No Use of E-Cig and/or Vaping dev: No Substance use?: No Alcohol Use?: No Immunizations Up To Date First/Initial COVID19 Vaccinat: Pfizer Second COVID19 Vaccination Jerod: Mobi[employer] Third COVID19 Vaccination Date: Mobi[employer] Seasonal Allergies Seasonal Allergies: No Past Medical History Surgery/Hospitalization HX: ANXIETY Surgeries: No Respiratory: No Cardiac: No Neurological: No Genitourinary: No Gastrointestinal: No Musculoskeletal: No Endocrine: No HEENT: No Cancer: No Psychosocial: No Integumentary: No Blood Disorders: No Family Medical History Reviewed Nursing Family Hx Physical Exam Vital Signs Vital Signs - First Documented 12/10/22 06:08 Temp 36.2 Pulse 72 Resp 18 B/P (MAP) 120/67 (84) Pulse Ox 99 O2 Delivery Room Air Height, Weight, BMI Height: '" Weight: lbs. oz. kg; 19.00 BMI Method: General Appearance: WD/WN, no apparent distress Eyes: bilateral eye normal inspection, bilateral eye PERRL, bilateral eye EOMI Ears: bilateral ear auricle normal, bilateral ear canal normal, bilateral ear TM normal Nose: normal inspection Mouth/Throat: pharynx normal, other (Overall good dentition with normal appearing tissue. Upper lip buccal surface has linear blister horizontal approximately 2 x 20 mm that would follow along the teeth line. No significant erythema to the buccal mucosa and blisters seems simple with clear fluid. No purulence or significant redness at the base.) Neck: full range of motion, supple Neurologic/Psychiatric: alert, oriented x 3 Skin: normal color, warm/dry Progress/Results/Core Measures Results/Orders Vital Signs/I&O 12/10/22 06:08 Temp 36.2 Pulse 72 Resp 18 B/P (MAP) 120/67 (84) Pulse Ox 99 O2 Delivery Room Air Blood Pressure Mean: 84 Progress Progress Note : Progress Note Seen and evaluated. Area of blisters noted along the upper lip. No findings to suggest infection or inflammatory process. This may be friction blister from dry mouth as it does follow the teeth line and line where retainer would follow along the upper teeth. We did discuss gentle mouthwash and following up with dentist for recheck and to discuss other options to keep mouth moist. Discharged home with return precautions. Patient verbalized understanding of instructions and agreement with plan. We did discuss OTC medications and infectious return precautions Departure Impression Primary Impression: Blister (nonthermal) of oral cavity, initial encounter Disposition: HOME, SELF-CARE Condition: Stable Departure-Patient Inst. Decision time for Depature: 06:22 Referrals: LEE CHAMBERS APRN (PCP/Family) Primary Care Physician Patient Instructions: Blisters Add. Discharge Instructions: All discharge instructions reviewed with patient and/or family. Voiced understanding. You should rinse your mouth twice daily with salt water rinse using 1 teaspoon of salt in a cup of warm water and rinse and spit. Continue to brush teeth. Follow-up with your dentist today for recheck and further evaluation. Return for worse pain, swelling, fever or other concerns as needed. Tylenol and ibuprofen as needed for pain per package directions. Return for increased swelling, redness, fever or other concerns as needed. AVINASH PAGE MD Dec 10, 2022 06:24
== END 2022-12-10 06:33 | disposition home or self-care (01) ==
LOC: EDUNIT# 06:01 → ER 06:03
DX: S00.522A Blister (nonthermal) of oral cavity, initial encounter (principal); X58.XXXA Exposure to other specified factors, initial encounter
CPT/HCPCS: 99281